=== PATIENT | male | born 1960 | race Caucasian/White ===

== ENCOUNTER → 2017-03-15 18:22 | Emergency (ER) | payer BC ==
[~2017-03-15 18:22] MED LIST: Enoxaparin(*) 80 MG/0.8 ML SYR SUBCUT ONE
[2017-03-15 19:30] LABS: Hematocrit 41 % (42-52); Hemoglobin 13.4 g/dl (14.0-18.0); Mean Corpuscular HGB Conc 33 g/dl (31-36); Mean Corpuscular Hemoglobin 29 pg (27-31); Mean Corpuscular Volume 88 fL (80-94); Mean Platelet Volume 8 um3 (7.4-10.4); Red Blood Count 4.63 10^6/ul (4.0-5.4); Red Cell Distribution Width 14 % (10.5-15); White Blood Count 8.1 10^3/ul (3.5-10.8)
[2017-03-15 19:34] LABS: Add Diff/Slide Review? Slide Review Added; Comments Flag Yes
[2017-03-15 19:41] LABS: Albumin 3.9 g/dL (3.2-5.2); BUN/Creatinine Ratio 21.2 (8-20); Calcium 10.1 mg/dL (8.6-10.3); EGFR African American 119.1 (>60); EGFR Non-African American 92.6 (>60); Globulin 3.1 g/dL (2-4); Total Bilirubin 0.9 mg/dL (0.2-1.0)
--- NOTE | 2017-03-15 20:24 | RAD ---
INDICATION: RIGHT calf pain and swelling for 4 days. COMPARISON: No relevant prior exams available on the [facility] PACS for comparison. TECHNIQUE: Calderon scale, color Doppler, and spectral analysis of the deep veins of the RIGHT lower extremity. Vessel compression, phasicity, and augmentation assessed. REPORT: The RIGHT common femoral, great saphenous, profunda femoral, femoral, popliteal, peroneal, and posterior tibial veins are patent. Occlusive thrombosis of the paired and duplicated RIGHT gastrocnemius veins (within the muscular compartment) corresponding with the region of pain. Patency of the LEFT common femoral vein documented. IMPRESSION: 1. No evidence for above-knee RIGHT lower extremity deep venous thrombosis. 2. Infrageniculate RIGHT lower extremity DVT involving the paired and duplicated RIGHT gastrocnemius veins (within the muscular compartment) corresponding with the region of pain.
--- NOTE | 2017-03-15 21:48 | ED ---
Lower Extremity - HPI Summary HPI Summary: Patient underwent right partial knee replacement last week through [facility] and was referred here today for complaints of calf pain and swelling. He denies SOB , CP, N/T. He is taking aspirin 325mg BID as per his surgeon and has been participating in PT as directed. - History of Current Complaint Chief Complaint: EDExtremityLroshni Stated Complaint: R/O DVT-1WK POST OP-SENT BY [facility] Time Seen by Provider: 03/15/17 20:49 Hx Obtained From: Patient Mechanism Of Injury: Unknown Onset of Pain: Hours Onset/Duration: Hours Severity Initially: Mild Severity Currently: Mild Pain Intensity: 1 Timing: Constant Location: Is Discrete @ - right calf Character Of Pain: Dull, Aching Associated Signs And Symptoms: Positive: Swelling Aggravating Factor(s): Movement Alleviating Factor(s): Nothing Able to Bear Weight: Yes - Allergies/Home Medications Allergies/Adverse Reactions: Allergies Allergy/AdvReac Type Severity Reaction Status Date / Time No Known Allergies Allergy Verified 04/19/16 10:09 PMH/Surg Hx/FS Hx/Imm Hx Endocrine/Hematology History: Denies: Hx Diabetes, Hx Thyroid Disease Cardiovascular History: Denies: Hx Hypercholesterolemia, Hx Hypertension, Hx Pacemaker/ICD, Hx Peripheral Vascular Disease Musculoskeletal History: Reports: Hx Joint Replacement - right partial knee Denies: Hx Arthritis, Hx Rheumatoid Arthritis, Hx Osteoporosis Sensory History: Denies: Hx Cataracts, Hx Contacts or Glasses, Hx Glaucoma, Hx Hearing Aid Opthamlomology History: Denies: Hx Cataracts, Hx Contacts or Glasses, Hx Glaucoma Neurological History: Denies: Hx Headaches, Hx Seizures, Hx Transient Ischemic Attacks (TIA) Psychiatric History: Denies: Hx Anxiety, Hx Depression, Hx Panic Disorder - Surgical History Surgery Procedure, Year, and Place: ARTHROSCOPY RT KNEE FOR MENISCUS REPAIR, MICROFRACTURE Infectious Disease History: No Infectious Disease History: Denies: Traveled Outside the [place] in Last 30 Days - Family History Known Family History: Positive: None - Social History Occupation: Employed Full-time Lives: With Family Alcohol Use: None Substance Use Type: Reports: None Smoking Status (MU): Never Smoked Tobacco Review of Systems Negative: Chest Pain Negative: Shortness Of Breath Positive: Myalgia, Edema - right calf All Other Systems Reviewed And Are Negative: Yes Physical Exam Triage Information Reviewed: Yes Vital Signs On Initial Exam: Initial Vitals Temp Pulse Resp BP Pulse Ox 97.6 F 69 16 128/98 97 03/15/17 18:39 03/15/17 18:39 03/15/17 18:39 03/15/17 18:39 03/15/17 18:39 Vital Signs Reviewed: Yes Appearance: Positive: Well-Appearing, No Pain Distress, Well-Nourished Skin: Positive: Warm, Skin Color Reflects Adequate Perfusion, Dry, Soft Head/Face: Positive: Normal Head/Face Inspection Eyes: Positive: EOMI, JODEE, Conjunctiva Clear ENT: Positive: Hearing grossly normal Respiratory/Lung Sounds: Positive: Breath Sounds Present Cardiovascular: Positive: RRR Musculoskeletal: Positive: Pain @ - right calf, Rj Sign Right, Edema Right Neurological: Positive: Sensory/Motor Intact, Alert, Oriented to Person Place, Time, NV Bundle Intact Distally, Abnormal Gait Psychiatric: Positive: Affect/Mood Appropriate AVPU Assessment: Alert Diagnostics - Vital Signs Vital Signs Temp Pulse Resp BP Pulse Ox 03/15/17 21:04 98.3 F 60 15 109/66 100 03/15/17 18:39 97.6 F 69 16 128/98 97 - Laboratory Lab Results: Lab Results 03/15/17 03/15/17 Range/Units 18:55 18:55 WBC 8.1 (3.5-10.8) 10^3/ul RBC 4.63 (4.0-5.4) 10^6/ul Hgb 13.4 L (14.0-18.0) g/dl Hct 41 L (42-52) % MCV 88 (80-94) fL MCH 29 (27-31) pg MCHC 33 (31-36) g/dl RDW 14 (10.5-15) % Plt Count 377 (150-450) 10^3/ul MPV 8 (7.4-10.4) um3 Neut % (Auto) 69.9 (38-83) % Lymph % (Auto) 11.6 L (25-47) % Davidson % (Auto) 15.1 H (1-9) % Eos % (Auto) 3.0 (0-6) % Baso % (Auto) 0.4 (0-2) % Absolute Neuts (auto) 5.7 (1.5-7.7) 10^3/ul Absolute Lymphs (auto) 0.9 L (1.0-4.8) 10^3/ul Absolute Monos (auto) 1.2 H (0-0.8) 10^3/ul Absolute Eos (auto) 0.2 (0-0.6) 10^3/ul Absolute Basos (auto) 0 (0-0.2) 10^3/ul Absolute Nucleated RBC 0.01 10^3/ul Nucleated RBC % 0.1 Sodium 136 (133-145) mmol/L Potassium 5.0 (3.5-5.0) mmol/L Chloride 102 (101-111) mmol/L Carbon Dioxide 28 (22-32) mmol/L Anion Gap 6 (2-11) mmol/L BUN 18 (6-24) mg/dL Creatinine 0.85 (0.67-1.17) mg/dL Est GFR ( Amer) 119.1 (>60) Est GFR (Non-Af Amer) 92.6 (>60) BUN/Creatinine Ratio 21.2 H (8-20) Glucose 110 H (70-100) mg/dL Calcium 10.1 (8.6-10.3) mg/dL Total Bilirubin 0.90 (0.2-1.0) mg/dL AST 27 (13-39) U/L ALT 30 (7-52) U/L Alkaline Phosphatase 54 (34-104) U/L Total Protein 7.0 (6.4-8.9) g/dL Albumin 3.9 (3.2-5.2) g/dL Globulin 3.1 (2-4) g/dL Albumin/Globulin Ratio 1.3 (1-3) Result Diagrams: 03/15/17 18:55 03/15/17 18:55 Lab Statement: Any lab studies that have been ordered have been reviewed, and results considered in the medical decision making process. - Ultrasound No standard instances Ultrasound Interpretation: Positive (See Comments) Ultrasound Interpretation Completed By: Radiologist - right infrageniculate lower extremity DVT Lower Extremity Course/Dx - Diagnoses Differential Diagnosis/HQI/PQRI: Positive: Cellulitis, Compartment Syndrome, Contusion, DVT, Infection, Sprain, Strain Provider Diagnoses: Right leg DVT Discharge - Discharge Plan Condition: Stable Disposition: HOME Prescriptions: Enoxaparin Sodium [Lovenox] 80 mg SC BID #10 inj Patient Education Materials: Leg Edema (ED) Referrals: Sean Ingram MD [Primary Care Provider] - Additional Instructions: Please use the Lovenox as instructed and call your primary care provider first thing in the morning for an appointment [facility] to discuss medical management of your condition. Discontinue use of your daily aspirin. Return to the emergency department if symptoms worsen.
[2017-03-15 22:38] VITALS: BP 145/83
== END | disposition home or self-care (01) ==
LOC: ED 18:22
DX: I82.4Z1 Acute embolism and thrombosis of unspecified deep veins of right distal lower extremity (principal); R60.0 Localized edema
CPT/HCPCS: 36415; 80053; 85025; 99282; J1650

== ENCOUNTER 2018-05-16 12:07 | Day surgery (SDC) | payer BC ==
[~2018-05-16 12:07] MED LIST changes: +Acetaminophen TAB* 325 MG PO PRN; +Buffered Lidocaine 0.9% SYRIN* 5 ML/SYR SYRINGE INTRADERM ONE; -Enoxaparin(*) 80 MG/0.8 ML SYR SUBCUT ONE
[2018-05-16] MEDS ORDERED: Midazolam* 1 MG/ML 2 ML VIAL (2 MG) ONE (13:21)
[2018-05-16 14:20] VITALS: BP 128/71
[2018-05-16] MEDS ORDERED: Lidocaine 2% EPI 1:200000 MPF*10-20 ML VIAL ONE (14:37)
[2018-05-16] MEDS ORDERED: Ketorolac 0.5% OPHTH (NF) 0.5 % 5 ML BTL ONE (14:37)
[2018-05-16] MEDS ORDERED: Neomycin/Polymy/Dex OPTH.SUSP* MAXITROL 0.1% 5 ML ONE (14:37)
[2018-05-16] MEDS ORDERED: Phenylephrine 2.5% OPTH.SOL* 2 ML BTL ONE (14:37)
[2018-05-16] MEDS ORDERED: Povidone Iodine 5% OPTH* 30 ML BTL ONE (14:37)
[2018-05-16] MEDS ORDERED: acetaZOLAMIDE TAB* 250 MG ONE (14:37)
[2018-05-16] MEDS ORDERED: Proparacaine 0.5% OPHTH.SOL* 15 ML BTL ONE (14:37)
[2018-05-16] MEDS ORDERED: Cyclopentolate 1% OPTH.SOL* 2 ML BTL ONE (14:37)
[2018-05-16] MEDS ORDERED: Lidocaine 1%* 5 ML VIAL ONE (14:37)
--- NOTE | 2018-05-17 10:43 | OP ---
OPERATIVE NOTE: DATE OF OPERATION: 05/16/18 - [facility], [place] DATE OF : 58 SURGEON: Demetrius Delacruz M.D. PREOPERATIVE DIAGNOSIS: Cataract, right eye. POSTOPERATIVE DIAGNOSIS: Cataract, right eye. OPERATIVE PROCEDURE: Extracapsular cataract extraction with intraocular lens implant right eye. PROCEDURE: The patient was brought to the operating room after being given 1/2 % Alcaine with epinephrine drops in the preoperative area. The eye was prepped and draped in the usual sterile fashion. Sterile drape and eyelid speculum were placed. Again, topical 1/2% Alcaine with epinephrine was given. A paracentesis incision was made at the 9 o'clock position with the No.75 blade. Clear cornea incision 2.2 x 2.2-mm was created at the 12 o'clock position starting at the anterior limbus using the 2.2-mm keratome. The anterior chamber was irrigated with 0.4 mL of 1% non-preservative intracameral lidocaine and filled with DisCoVisc. A capsulorrhexis was completed using the cystotome and the Utrata forceps. Hydrodissection was performed with balanced salt solution. The lens nucleus was removed with the Phacoemulsification handpiece without incident. Cortex was removed with the irrigation-aspiration handpiece. The capsular bag was re-inflated using DisCoVisc and an [id number] implant followed by capsular tension ring [id number] was inserted with the shooter. The irrigation-aspiration handpiece was used to remove all residual DisCoVisc. The eye was refilled with balanced salt solution and the wound checked and found to be watertight. Topical Maxitrol drops were given. Indication for complex cataract surgery status post vitrectomy requiring capsular tension device. [id number]/[facility] #: [id number] MTDD
== END 2018-05-16 14:25 | disposition home or self-care (01) ==
LOC: OREAST 12:07
PROVIDERS: ATTEND Specialist
DX: H25.811 Combined forms of age-related cataract, right eye (principal); H35.371 Puckering of macula, right eye; H35.021 Exudative retinopathy, right eye; Z86.718 Personal history of other venous thrombosis and embolism
CPT/HCPCS: A9270-GY; J2250; V2632